=== PATIENT | female | born 1995 | race Caucasian/White ===

== ENCOUNTER 2017-08-06 08:30 | Emergency (ER) | payer OTHER ==
[~2017-08-06] VITALS: Wt 67.0 kg
[~2017-08-06 08:30] MED LIST: RTPRO
[2017-08-06 09:27] LABS: URINE BLOOD (Dip) POC 3+ (NEGATIVE)
[2017-08-06 09:36] LABS: BASOPHILS % 0.5 % (0.0-2.0); EOSINOPHILS # 0.1 10^3/ul (0.0-0.5); EOSINOPHILS % 1.6 % (0.0-7.0); HEMATOCRIT 41.8 % (37.0-47.0); HEMOGLOBIN 13.6 g/dl (12.0-16.0); LYMPHOCYTES # 1.9 10^3/ul (0.8-2.9); LYMPHOCYTES % 23.5 % (15.0-51.0); MEAN CORPUSCULAR HEMOGLOBIN 30.1 pg (29.0-33.0); MEAN CORPUSCULAR HGB CONC 32.5 g/dl (32.0-37.0); MEAN CORPUSCULAR VOLUME 92.5 fl (82.0-101.0); MEAN PLATELET VOLUME 10.4 fl (7.4-10.4); MONOCYTE # 0.5 10^3/ul (0.3-0.9); MONOCYTES % 6.3 % (0.0-11.0); NEUTROPHIL # 5.5 10^3/ul (1.6-7.5); NEUTROPHILS % 67.7 % (39.0-77.0); PLATELET COUNT 254 10^3/UL (140-415); RED BLOOD COUNT 4.52 10^6/ul (4.20-5.40); RED CELL DISTRIBUTION WIDTH 12.1 % (11.5-14.5); WHITE BLOOD COUNT 8.1 10^3/ul (4.8-10.8)
[2017-08-06] MEDS ORDERED: CIPR500T4 PO (09:52)
[2017-08-06 09:53] LABS: CALCIUM 9.8 mg/dl (8.4-10.2); CREATININE 0.6 mg/dl (0.44-1.00); POTASSIUM 4.1 mmol/L (3.5-5.1)
[2017-08-06 10:10] LABS: URINE BLOOD (Dip) POC 3+ (NEGATIVE)
[2017-08-06 10:20] VITALS: BP 122/78; PULSE 77; RESP 18; TEMP 97.8
--- NOTE | 2017-08-06 12:44 | ERD ---
ER Documentation Chief Complaint Date/Time DATE: 08/06/17 TIME: 12:37 Chief Complaint body numbness x 1 week HPI This is a 22-year-old female presenting to the emergency department for generalized body numbness and tingling 1 week. Patient states she believes numbness and tingling started on her right lower arm and is now spread to her entire body. Patient states symptoms are intermittent. Denies loss of sensation. No rash or itching. No recent fall or head injury. No dizziness or weakness. No loss of consciousness. No vision changes or vision loss. Denies any drug or alcohol use. No recent diet changes. No abdominal pain, nausea or vomiting. No past medical or surgical history. Patient does not take any medications. Last menstrual period started 08/03/2017 and patient is currently menstruation. ROS All systems reviewed and are negative except as per history of present illness. Medications Home Meds Active Scripts Ciprofloxacin Hcl* (Ciprofloxacin Hcl*) 500 Mg Tablet, 500 MG PO BID for 3 Days , TAB Prov:ARI REIS NP 08/06/17 Reported Medications Albuterol Sulfate* (Proventil* Neb) 3 Ml Nebu 03/09/13 Allergies Allergies: Coded Allergies: No Known Allergy (Unverified , 03/09/13) PMhx/Soc Medical and Surgical Hx: pt denies Surgical Hx History of Surgery: No Anesthesia Reaction: No Hx Neurological Disorder: No Hx Respiratory Disorders: Yes (Asthma) Hx Cardiac Disorders: No Hx Psychiatric Problems: No Hx Miscellaneous Medical Probl: No Hx Alcohol Use: No Hx Substance Use: No Hx Tobacco Use: No Smoking Status: Never smoker Physical Exam Vitals Vital Signs Date Time Temp Pulse Resp B/P Pulse Ox O2 Delivery O2 Flow Rate FiO2 08/06/17 10:20 97.8 77 18 122/78 99 Room Air 08/06/17 08:32 97.8 99 18 135/84 99 Physical Exam Const: No acute distress, alert Head: Atraumatic Eyes: Normal Conjunctiva, PERRLA, EOMs intact ENT: Normal External Ears, Nose and Mouth. Neck: Full range of motion..~ No meningismus. Resp: Clear to auscultation bilaterally no wheezing, rhonchi or crackles. No stridor or labored breathing. Cardio: Regular rate and rhythm, no murmurs Abd: Soft, non tender, non distended. Normal bowel sounds Skin: No petechiae or rashes Back: No midline or flank tenderness Ext: No cyanosis, or edema Neur: Awake and alert Psych: Normal Mood and Affect Result Diagram: 08/06/1790408/06/17904 Results 24 hrs Laboratory Tests Test 08/06/17 09:05 08/06/17 09:35 White Blood Count 8.110^3/ul Red Blood Count 4.5210^6/ul Hemoglobin 13.6g/dl Hematocrit 41.8% Mean Corpuscular Volume 92.5fl Mean Corpuscular Hemoglobin 30.1pg Mean Corpuscular Hemoglobin Concent 32.5g/dl Red Cell Distribution Width 12.1% Platelet Count 34466^3/UL Mean Platelet Volume 10.4fl Neutrophils % 67.7% Lymphocytes % 23.5% Monocytes % 6.3% Eosinophils % 1.6% Basophils % 0.5% Nucleated Red Blood Cells % 0.0/100WBC Neutrophils # 5.510^3/ul Lymphocytes # 1.910^3/ul Monocytes # 0.510^3/ul Eosinophils # 0.110^3/ul Basophils # 0.010^3/ul Nucleated Red Blood Cells # 0.010^3/ul Sodium Level 139mmol/L Potassium Level 4.1mmol/L Chloride Level 105mmol/L Carbon Dioxide Level 27mmol/L Anion Gap 11 Blood Urea Nitrogen 13mg/dl Creatinine 0.60mg/dl Glucose Level 123mg/dl Calcium Level 9.8mg/dl Bedside Urine pH (LAB) 6.0 Bedside Urine Protein (LAB) 1+ Bedside Urine Glucose (UA) Negative Bedside Urine Ketones (LAB) Negative Bedside Urine Blood 3+ Bedside Urine Nitrite (LAB) Positive Bedside Urine Leukocyte Esterase (L 1+ Procedures/MDM This is a 22-year-old female presenting to emergency department for generalized body numbness and tingling 1 week. Patient's vital signs are stable and patient is afebrile. Patient denies pain. No headache or head injury. No dizziness or weakness. No other complaints. A CBC, BMP and urine dip were done. CBC shows no significant anemia or infection. BMP shows no significant electrolyte imbalance. Urine dip shows 1+ leukocyte esterase, positive nitrite , 3+ blood and 1+ protein. Patient is currently menstruating. This is most consistent with acute UTI. No flank pain. No fevers or chills. I have low suspicion for acute pyelonephritis or sepsis. Patient's paraesthesia is likely not emergent or life threatening at this time. Consulted with Dr. Johnson Negrete regarding this patient and she is in agreement with my plan of care. Patient likely has acute UTI and paresthesia. Patient is appropriate for outpatient management will be given prescription for Cipro. Instructed patient to follow-up with primary care provider in the next 2 -3 days for reassessment and additional management. Return to ED for any high fever, chest pain, difficulty breathing, shortness breath, wheezing, vomiting, diarrhea, abdominal pain or any new or worsening symptoms. Patient verbalizes understanding. All questions answered at discharge. Disclaimer: Inadvertent spelling and grammatical errors are likely due to EHR/ dictation software use and do not reflect on the overall quality of patient care. Also, please note that the electronic time recorded on this note does not necessarily reflect the actual time of the patient encounter. Departure Diagnosis: Primary Impression: UTI (urinary tract infection) Urinary tract infection type: acute cystitis Hematuria presence: with hematuria Qualified Code: N30.01 - Acute cystitis with hematuria Additional Impression: Numbness Condition: Stable Patient Instructions: Understanding Urinary Tract Infections (UTIs) Referrals: COMMUNITY CLINICS YOU HAVE RECEIVED A MEDICAL SCREENING EXAM AND THE RESULTS INDICATE THAT YOU DO NOT HAVE A CONDITION THAT REQUIRES URGENT TREATMENT IN THE EMERGENCY DEPARTMENT. FURTHER EVALUATION AND TREATMENT OF YOUR CONDITION CAN WAIT UNTIL YOU ARE SEEN IN YOUR DOCTORS OFFICE WITHIN THE NEXT 1-2 DAYS. IT IS YOUR RESPONSIBILITY TO MAKE AN APPOINTMENT FOR FOLOW-UP CARE. IF YOU HAVE A PRIMARY DOCTOR --you should call your primary doctor and schedule an appointment IF YOU DO NOT HAVE A PRIMARY DOCTOR YOU CAN CALL OUR PHYSICIAN REFERRAL HOTLINE AT IF YOU CAN NOT AFFORD TO SEE A PHYSICIAN YOU CAN CHOSE FROM THE FOLLOWING [facility] CLINICS [facility] [address] [facility] [address] [facility] [address] [facility] [address] [facility] [address] [facility]. [facility] [address] [facility]. [facility] YOU HAVE RECEIVED A MEDICAL SCREENING EXAM AND THE RESULTS INDICATE THAT YOU DO NOT HAVE A CONDITION THAT REQUIRES URGENT TREATMENT IN THE EMERGENCY DEPARTMENT. FURTHER EVALUATION AND TREATMENT OF YOUR CONDITION CAN WAIT UNTIL YOU ARE SEEN IN YOUR DOCTORS OFFICE WITHIN THE NEXT 1-2 DAYS. IT IS YOUR RESPONSIBILITY TO MAKE AN APPOINTMENT FOR FOLOW-UP CARE. IF YOU HAVE A PRIMARY DOCTOR --you should call your primary doctor and schedule and appointment IF YOU DO NOT HAVE A PRIMARY DOCTOR YOU CAN CALL OUR PHYSICIAN REFERRAL HOTLINE AT . IF YOU CAN NOT AFFORD TO SEE A PHYSICIAN YOU CAN CHOSE FROM THE FOLLOWING [facility] INSTITUTIONS: [facility] [address] [place] [address] [facility] [address] [place] [address] [facility] [address] [place] [address] Additional Instructions: Call your primary care doctor TOMORROW for an appointment during the next 2-3 days.See the doctor sooner or return here if your condition worsens before your appointment time. Return to ED for any high fever, chest pain, difficulty breathing, shortness breath, wheezing, vomiting, diarrhea, abdominal pain or any new or worsening symptoms. ARI REIS NP Aug 06, 2017 12:44
== END 2017-08-06 10:20 | disposition home or self-care (01) ==
LOC: FTE 08:30
DX: N30.01 Acute cystitis with hematuria (principal); J45.909 Unspecified asthma, uncomplicated
CPT/HCPCS: 36415; 80048; 81003; 85025; Z7502; 99283